=== PATIENT | female | born 1945 | race Caucasian/White ===

== ENCOUNTER 2022-02-11 14:37 | Emergency (ER) | payer OTHER ==
[~2022-02-11] VITALS: Ht 160 cm; Wt 97.1 kg
[2022-02-11 14:59] VITALS: BP_SYST 141
--- NOTE | 2022-02-11 15:00 | NUR ---
Patient triaged and placed in waiting room. VSS and patient appears in no acute distress at this time. Accompanied by DAUGHTER, awaiting available bed, and MD notified of need for MSE.
--- NOTE | 2022-02-11 16:05 | NUR ---
ER DR. DALLAS EXAMINING PT
[2022-02-11] MEDS ORDERED: cefTRIAXone 1 GM in LIDOCAINE 1%, 20 ML MDV 2.1 ML IM ONE (16:45)
[2022-02-11] MEDS ORDERED: BENZ100C92 PO (16:58)
[2022-02-11] MEDS ORDERED: MED4 PO (16:58)
[2022-02-11] MEDS ORDERED: AMOX-423 PO (16:58)
[2022-02-11 17:51] VITALS: BP_SYST 141
--- NOTE | 2022-02-11 17:52 | NUR ---
Patient given verbal discharge instructions and verbalizes understanding. ER MD discussed with patient the results and treatment provided. Patient in stable condition. ID arm band removed. IV catheter removed intact and dressing applied, no active bleeding. Rx of AUGMENTIN, BENZONATATE AND MEDROL given. Patient educated on pain management and to follow up with PMD. Pain Scale 0/10. Opportunity for questions provided and answered. Medication side effect fact sheet provided. PT LEFT WITHOUT SIGNING DC PAPERWORK
== END 2022-02-11 17:51 | disposition home or self-care (01) ==
LOC: SED 14:37
DX: J40 Bronchitis, not specified as acute or chronic (principal); R05.9 Cough, unspecified; R09.81 Nasal congestion; J02.9 Acute pharyngitis, unspecified; I10 Essential (primary) hypertension; Z91.018 Allergy to other foods; Z79.899 Other long term (current) drug therapy
CPT/HCPCS: 99283; 71045; 96372; J0696; J2001